=== PATIENT | male | born 1975 | race Caucasian/White ===

== ENCOUNTER 2017-10-30 19:52 | Emergency (ER) | payer BC ==
[~2017-10-30] VITALS: Ht 167.6 cm; Wt 113.4 kg
[2017-10-30 19:55] VITALS: BP_SYST 133
--- NOTE | 2017-10-30 19:55 | NUR ---
Patient to ER bed 02 to gown for evaluation. Side rails up. will assume care
--- NOTE | 2017-10-30 20:01 | NUR ---
ER at bedside examining patient.
--- NOTE | 2017-10-30 20:10 | NUR ---
Patient states his heart is beating fast and having dizziness and light headedness today. Patient's is at bedside. States patient has not been drinking water. Denies any N/V/D. Denies any pain. No other complaints/injuries per patient or as noted. Will continue to monitor.
--- NOTE | 2017-10-30 20:31 | NUR ---
EKG performed at by [facility]. Physician given copy of EKG for review.
[2017-10-30 20:46] VITALS: BP_SYST 133
--- NOTE | 2017-10-30 20:46 | NUR ---
Patient given written and verbal discharge instructions and verbalizes understanding. ER MD discussed with patient the results and treatment provided. Patient in stable condition. ID arm band removed. No Rx given. Patient educated on pain management and to follow up with PMD in 2-3 days. Pain Scale 0/10. Opportunity for questions provided and answered.
== END 2017-10-30 20:46 | disposition home or self-care (01) ==
LOC: SED 19:52
DX: F41.9 Anxiety disorder, unspecified (principal); M06.9 Rheumatoid arthritis, unspecified
CPT/HCPCS: 93005; 99283